=== PATIENT | female | born 1925 | race Caucasian/White ===

== ENCOUNTER 2016-10-24 14:52 | Inpatient (IN) | payer MEDICARE ==
[~2016-10-24] VITALS: Ht 167.6 cm; Wt 46.8 kg
[~2016-10-24 14:52] MED LIST: AMOX-363 PO; DIGO125T73 PO; FAMO20T PO; GABA-502 PO; IPRA3AMP NEB; WARF2.5T82 PO
[2016-10-24 15:09] VITALS: BP 187/100; PULSE 96; RESP 20; O2SAT 99
--- NOTE | 2016-10-24 15:29 | ED.REPORT ---
HPI-Abd Pain F 40 and Over Date of Service Oct 24, 2016 ED Provider: Dr. Santamaria Pt is an 89 y/o female anticoagulated on Warfarin w/ a hx of A-fib, CHF, presenting to the ED with her family c/o worsening constant, sharp diffuse lower abdominal pain onset last night. She c/o associated nausea, vomiting x1 small episode, anorexia. She denies dysuria, constipation, diarrhea, back pain, fever, bloody stools, cough, SOB. She has had an appendectomy and cholecystectomy. Nursing Notes Stated Complaint: POSSIBLE KIDNEY STONES Chief Complaint: Female Abdominal Pain Nursing Notes Reviewed: Yes Allergies: Coded Allergies: morphine (Verified Adverse Reaction, Severe, Nausea,Vomiting, 10/24/16) Scheduled Digoxin (Digoxin) 125 Mcg Tablet 125 MCG PO HS Warfarin Sodium (Warfarin Sodium) 1 Mg Tablet 1.5 MG PO ,Mo,,,Fr,Sa Warfarin Sodium (Warfarin Sodium) 1 Mg Tablet 2 MG PO every sunday General Time Seen by MD: 15:28 Chief Complaint Abdominal pain Hx Obtained From: Patient Arrived By: Walk-in Sudden in Onset?: No Onset Occurred: 9 - 12 hours ago Symptom Duration: Constant Progression since Onset: Constant Location: : Abdomen lower Quality: Painful Radiation: : Does not radiate Severity: Current: Moderate Severity: Maximum: Moderate Past Medical History Past Medical History Atrial fibrillation - on Coumadin CHF Hx kidney stones Hx pneumonia Past Surgical History Appendectomy Cholecystectomy Family History noncontributory Smoking History Unknown if Ever Smoker Social History Other Social History: Local resident Ambulatory Status Independent Review of Systems Constitutional: Denies: Chills, Fever Respiratory: Denies: Non-productive cough, Shortness of breath GI: Reports: Abdominal pain, Anorexia, Nausea, Vomiting Female: Denies: Dysuria Musculoskeletal: Denies: Back pain Complete sys rev & neg: except as marked. Physical Exam Vital Signs Vital Signs (First) Date Time Temp Pulse Resp B/P Pulse Ox O2 Delivery O2 Flow Rate FiO2 10/24/16 15:09 36.4 96 20 187/100 99 Room Air Initial VS: Reviewed, Vital signs abnormal Head / Eyes: Atraumatic, Normocephalic, PERRL ENT: Mucous membranes moist, Conjunctiva normal, No scleral icterus Neck: Supple, Full range of motion Extremities: Vascular intact, Neuro intact, No swelling Skin: Warm, Dry, No cyanosis Neurologic: Alert, Oriented, Nonfocal Psychiatric: Mood/affect normal, Behavior normal, Normal thought content General/Constitutional: Awake, Alert, No acute distress, Cooperative, Not toxic appearing Appearance / Presentation: Positive: Cachectic Respiratory / Chest: No respiratory distress, No rales, No rhonchi, No wheezing Decreased breath sounds over right base Cardiovascular: Heart rate NL, Regular rhythm, Heart sounds NL, No gallop, No murmurs, No rubs Abdomen: Atraumatic, Soft, No guarding, No rebound, No distention Tenderness/Guarding/Rebound: Positive: Tender RLQ... (Mild), Tender suprapubic (mild) Back: Full range of motion, Painless range of motion Interpretation & Diagnostics Lab Results Interpretation Result Diagram: 10/24/16 1545 10/24/16 1545 Test 10/24/16 15:45 10/24/16 18:08 White Blood Count 8.5th/mm3 (3.8-10.1) Red Blood Count 4.43mil/mm3 (3.90-5.20) Hemoglobin 10.4g/dL (12.0-15.6) Hematocrit 34.3% (35.0-46.0) Mean Corpuscular Volume 77.4fL (81-100) Mean Corpuscular Hemoglobin 23.5pg (27.0-35.0) Mean Corpuscular Hemoglobin Concent 30.3% (32.0-37.0) Red Cell Distribution Width 17.4% (12.3-15.4) Platelet Count 144bil/L (150-400) Neutrophils (%) (Auto) 88.6% (40-74) Lymphocytes (%) (Auto) 6.7% (14-46) Monocytes (%) (Auto) 4.1% (4-12) Eosinophils (%) (Auto) 0.2% (0-5) Basophils (%) (Auto) 0.2% (0-3) Prothrombin Time 24.9sec (8.1-12.5) Prothromb Time International Ratio 2.29ratio Sodium Level 140mEq/L (134-144) Potassium Level 4.2mEq/L (3.5-5.2) Chloride Level 100mEq/L (97-108) Carbon Dioxide Level 26mmol/L (18-29) Blood Urea Nitrogen 16mg/dL (8-27) Creatinine 0.78mg/dL (0.57-1.00) Estimat Glomerular Filtration Rate 100mL/min (>59) Glucose Level 122mg/dL (60-99) Lactic Acid Level 1.3mmol/L (0.4-2.0) Calcium Level 9.3mg/dL (8.5-10.1) Magnesium Level 1.9mg/dL (1.6-2.6) Total Bilirubin 0.9mg/dL (0.0-1.2) Aspartate Amino Transf (AST/SGOT) 17U/L (0-50) Alanine Aminotransferase (ALT/SGPT) 7U/L (0-32) Alkaline Phosphatase 73U/L (25-165) Total Protein 6.4g/dL (6.4-8.4) Albumin 3.7g/dL (3.4-5.0) Lipase 25U/L (13-60) Urine Color Yellow (YELLOW) Urine Appearance Clear (CLEAR,HAZY) Urine pH 7.5 (5.0-8.0) Urine Specific Valentine 1.010 (1.003-1.035) Urine Protein Negativemg/dL (NEG,TRACE) Urine Glucose (UA) Negativemg/dL (NEGATIVE) Urine Ketones 15mg/dL (NEGATIVE) Urine Occult Blood Trace (NEGATIVE) Urine Nitrite Negative (NEGATIVE) Urine Bilirubin Negative (NEGATIVE) Urine Urobilinogen Normalmg/dL (NORMAL) Urine Leukocyte Esterase Negative (NEGATIVE) Urine RBC 0-2/hpf (0-2) Urine WBC 0-5/hpf (0-5) Urine Epithelial Cells None/hpf (NONE-MOD) Urine Crystals Amorphous urates (NONE Urine Bacteria Few/hpf (NONE-FEW) Urine Hyaline Casts None/lpf (NONE) Urine Granular Casts None seen (NONE SEEN) Urine Waxy Casts None seen (NONE SEEN) Urine Red Blood Cell Casts None seen (NONE SEEN) Urine White Blood Cell Casts None seen (NONE SEEN) Urine Mucus None seen (None Seen) Urine Trichomonas None seen (NONE SEEN) Urine Yeast None (NONE SEEN) Urinalysis Comment None Urine Culture Reflexed Not indicated ECG Interpretation ECG Interpretation: A-fib rate 62 Time: 17:42 Interpreted by: ED physician Normal ECG Interpretation: No acute ischemic changes CT Abd / Pelvis Interpretation IMPRESSION: Changes consistent with small bowel obstruction. Cause and location is not identified. The appearance would suggest all is not all of the small bowel is distended. There is some air and feces in the colon but there is no distention of the colon. Prominently calcified ringlike structure probably old inflammatory cyst from the inferior pole of the left kidney unchanged. Bilateral one on each side nonobstructing renal calculi. Enlarged heart but no failure appreciated. There is a small left pleural effusion of unknown cause. Abnormal vascular clips in density in the region of the GE junction suggesting old surgery in the area. Dictated by: Dino Avendano M.D. on 10/24/2016 at 17:41 Approved by: Dino Avendano M.D. on 10/24/2016 at 17:56 Study type: Abdominal CT IV contrast Interpretation / Wet Read by: Interpret - Radiologist, Discussed w radiologist Re-Eval/Medical Decision Med Decision/Clinical Course 89-year-old female history of cholecystectomy, appendectomy, atrial fibrillation on warfarin presenting with abdominal pain nausea vomiting times several days. She is diffuse lower abdominal tenderness no rebound or guarding. CT scan shows small bowel obstruction. No vomiting here. With blood cell count is normal. Discussed with general surgery Dr. Muhammad who agrees with plan for hospitalization on the hospitalist service with NG tube and bowel rest. Patient admitted to the hospitalist service. Will hold Coumadin in case she needed surgical intervention. Full code per family. Source of Hx: Old records Re-Evaluation/Progress : Time of Eval: 18:08 Re-Evaluation/Progress Note: Pt rechecked. Pain improved. Discussed CT results. Consultation : Referral / Consult Name: Miguel Muhammad MD Consulted With: Surgeon Call Returned at: 18:15 Furniture Refinisher: Agrees with eval, Agrees with plan Note: Recommends admit. Will consult during admit. Hold Warfarin, treat as partial SBO. Counseled Regarding: Diagnosis, Lab results, Need for admission Discharge & Departure Primary Impression: SBO (small bowel obstruction) Additional Impression: Anticoagulated on warfarin Disposition: ADMITTED TO HOSPITAL Discharge Condition All VS Reviewed: Yes Condition: Stable Referrals: Claudette Wilkins PA-C (PCP) Scribe Attestation Portions of this note were transcribed by Jack La. I, Dr. Santamaria personally performed the history, physical exam and medical decision-making; I reviewed and confirmed the accuracy of the information in the transcribed note. Signed by Cici Senior, 10/24/16 - 1599 copies to: Claudette Wilkins PA-C, Ben M MD Oct 24, 2016 15:28 JACK LA Oct 24, 2016 15:52
[2016-10-24] MEDS ORDERED: 0.9% Sodium Chloride 250 ML IV ONE (15:53)
[2016-10-24 16:09] LABS: Mean Corpuscular Hemoglobin 23.5 pg (27.0-35.0); Mean Corpuscular Volume 77.4 fL (81-100); Platelet Count 144 bil/L (150-400)
[2016-10-24 16:10] LABS: BASOPHILS % (AUTO) 0.2 % (0-3); EOSINOPHILS % (AUTO) 0.2 % (0-5); MONOCYTES % (AUTO) 4.1 % (4-12); NEUTROPHILS % (AUTO) 88.6 % (40-74)
[2016-10-24 16:13] LABS: INR 2.29 ratio
[2016-10-24 16:19] LABS: Magnesium 1.9 mg/dL (1.6-2.6)
[2016-10-24] MEDS: HYDROmorphone 0.5 mg/0.5 mL iSecure Syringe IVPUSH PRN ×2 (16:22→18:15)
[2016-10-24] MEDS: Ondansetron 2 mg/mL 2 mL Inj IVPUSH PRN ×2 (16:23→21:02)
[2016-10-24 17:47] VITALS: BP 165/72; PULSE 81; RESP 16; O2SAT 95
--- NOTE | 2016-10-24 17:58 | DRSVH ---
PROCEDURE: CT ABDOMEN AND PELVIS WITH CONTRAST ([id number]) INDICATIONS: abd pain RLQ, suprapubic TECHNIQUE: After the administration of intravenous contrast, 5 mm thick sections acquired from the diaphragm to the symphysis. 5 mm coronal and sagittal reformats were acquired. For radiation dose reduction, the following was used: automated exposure control, adjustment of mA and/or kV according to patient siz kimberley. COMPARISON: [facility], CT, CT ANGIO CHEST ABD, 10/23/2015, 16:01. FINDINGS: Image quality: Good. ABDOMEN: Lung bases: Lung bases show a small left pleural effusion.. Heart size is enlarged Solid organs: Liver and spleen are normal in size and enhancement. Gallbladder has been removed. Bi liary tree is prominent but are probably not changed intra-or extrahepatically since the previous alan dy.. . Pancreas enhances normally. No adrenal nodules. Kidneys demonstrate normal size and enhanc ement, without hydronephrosis. Densely calcified cyst circular structure at the inferior pole of the left kidney of approximately 3-4 cm size is unchanged since the study one year ago. 2 renal calculi o ne on the right and one on the left postcentral but nonobstructing are present. The one on the right is 8 and the one on the left 9 mm. Calcifications were seen previously as well as the dense cystic ca lcified lesion inferiorly on the left. Peritoneum and bowel: There are vascular clips and abnormal density in the region of the GE junction but these are unchanged since previous CT. Bowel loops demonstrate distention throughout the small b owel. Transition point is not appreciated. Colon is not thought to be distended there is scattered di verticula. No free air or fluid is identified.. No free fluid or air. Nodes and vessels: No retroperitoneal or mesenteric adenopathy by size criteria. The aorta shows a p rominent atherosclerotic calcification and some ectasia. No dissection or aneurysm. The major vessels from the aorta showed a contrast-enhancement. The inferior vena cava is normal in size. Miscellaneous: No ventral hernias. PELVIS: Genitourinary: Bladder wall thickness is normal. Miscellaneous: No inguinal hernias or adenopathy. Bones: No suspicious bony lesions. No vertebral body compression fractures. IMPRESSION: Changes consistent with small bowel obstruction. Cause and location is not identified. The appearanc e would suggest all is not all of the small bowel is distended. There is some air and feces in the co radha but there is no distention of the colon. Prominently calcified ringlike structure probably old inflammatory cyst from the inferior pole of the left kidney unchanged. Bilateral one on each side nonobstructing renal calculi. Enlarged heart but no failure appreciated. There is a small left pleural effusion of unknown cause. Abnormal vascular clips in density in the region of the GE junction suggesting old surgery in the are a. Dictated by: Dino Avendano M.D. on 10/24/2016 at 17:41 Approved by: Dino Avendano M.D. on 10/24/2016 at 17:56
[2016-10-24 18:17] LABS: APPEARANCE,URINE CLEAR (CLEAR,HAZY); COLOR,URINE YELLOW (YELLOW); OCCULT BLOOD,URINE TRACE (NEGATIVE); PH,URINE 7.5 (5.0-8.0); UROBILINOGEN,URINE NORMAL (NORMAL)
[2016-10-24] MEDS ORDERED: Benzocaine (Hurricaine) 20% Unit-Dose Spray MUC_MEMBRM ONE (18:35)
[2016-10-24] MEDS ORDERED: WARF1TAB6 PO ×2 (19:21)
[2016-10-24] MEDS ORDERED: Alum-Mag Hydrox-Simeth 30 mL Suspension PO PRN ×2 (19:25→20:45)
[2016-10-24] MEDS ORDERED: Ondansetron 2 mg/mL 2 mL Inj IVPUSH PRN ×2 (19:25→20:45)
[2016-10-24 20:09] VITALS: BP 179/81; PULSE 75; RESP 18; O2SAT 97
[2016-10-24] MEDS ORDERED: Polyethylene Glycol (PEG) 17 Gm Powder PO PRN (20:45)
[2016-10-24 20:50] VITALS: BP 179/81; PULSE 75; RESP 17; O2SAT 97
[2016-10-24 21:49] VITALS: BP 173/97; PULSE 74; RESP 18; O2SAT 94
--- NOTE | 2016-10-24 22:45 | PCM.HPMED ---
Subjective Date of Service Oct 24, 2016 Primary Provider: Admitting Physician: Jayce Lehman MD Primary Care Physician: Claudette Wilkins PA-C Attending Physician: Jayce Lehman MD Chief Complaint: Abdominal pain History of Present Illness: 89-year-old female with history of mild dementia, atrial fibrillation on warfarin, CHF, kidney stones, and admission 2016 for pneumonia who presented to the emergency department due to complaints of worsening sharp lower abdominal pain with associated anorexia and nausea/ vomiting 1. Per [id number] who is with the patient, the patient began having some abdominal pain this morning around 8 AM this morning that progressively got worse until she had one small emesis. Family tried Pepto-Bismol and herbal tea which did not help calm the patient's belly. Patient denies any fevers, chills, chest pain or shortness of breath. Patient does state that she has loose watery stools chronically, and she has been able to pass flatus throughout the day. Per the [id number]-ru-[id number] the patient has been steadily declining over this last 6 months with a steeper decline noticed over the last 3 months. She is increasingly weak and only able to eat small amounts of food. Patient lives with family in they have been concerned about her eating habits have tried to get her to eat more but the patient has been uninterested. All other review systems are negative. Patient' s surgical history includes an appendectomy and cholecystectomy, in 2004 and 2002 respectively. Patient is currently ambulating with a walker. Dash (son) his DPOA. In the emergency department CT scan of the abdomen revealed changes consistent with a small bowel obstruction, although location was difficult to identify. Laboratory values show a microcytic hypochromic anemia and normal leukocyte count but with a left shift. CMP was unremarkable including lipase. INR was 2.29. Dr. Miguel Muhammad was consultative from the ED and recommended admit, holding the warfarin, and placing an NG tube. Review of Systems: Complete review of systems performed; pertinent positives and negatives per history of present illness, all other systems reviewed and are negative Allergies Coded Allergies: morphine (Verified Adverse Reaction, Severe, Nausea,Vomiting, 10/24/16) Home Medications Digoxin (Digoxin) 125 Mcg Tablet 125 MCG PO HS Famotidine (Pepcid) 20 Mg Tablet 10 MG PO BID Gabapentin (Gabapentin) 300 Mg Capsule 300 MG PO BID Warfarin Sodium (Warfarin Sodium) 2.5 Mg Tablet 2.5 MG PO ASDIRECTED Ipratropium/Albuterol Sulfate (Iprat-Albut 0.5-3(2.5) mg/3 mL Inhalant Soln) 3 Ml Ampul.neb 3 ML NEB Q4H PRN PRN For Shortness of Breath PMH Atrial fibrillation - on Coumadin CHF Hx kidney stones Hx pneumonia Surgical History Appendectomy Cholecystectomy Family History Both her parents are although unable to relate her past medical history Social History Hx Alcohol Use: No Hx Substance Use: No Hx Tobacco Use: No Smoking Status: Unknown if Ever Smoker Living Arrangement: with Family Exam Vital Signs Vital Sign - Last Date Time Temp Pulse Resp B/P Pulse Ox O2 Delivery O2 Flow Rate FiO2 10/24/16 21:49 36.7 74 18 173/97 94 Room Air Exam General: Patient appears severely malnourished and cachectic; in many areas the patient appears to have no soft tissue and thinning of skin, around the base of her neck the clavicles are quite protruded, sternocleidomastoids are extremely defined, and rib cage is clearly visible; patient's arms are essentially bone HEENT: PERRLA, EOMI, nonicteric, membranes moist; JVD noted sitting upright Lymph: No lymphadenopathy Cardio: Regular rate and rhythm no murmurs rubs or gallops Respiratory: CTA bilaterally, no wheezes, no crackles Abdomen: Tenderness to palpation, soft, bowel tones difficult to appreciate Extremities: Mild to moderate edema of the lower extremities bilaterally Psych: Appropriate mood and affect Neuro: CN II through XII grossly intact, sensation intact throughout Skin: No rash Lab and Diagnostics Result Diagram: 10/24/16 1545 10/24/16 1545 X-Rays, CTs and MRIs CT abdomen IMPRESSION: Changes consistent with small bowel obstruction. Cause and location is not identified. The appearance would suggest all is not all of the small bowel is distended. There is some air and feces in the colon but there is no distention of the colon. Prominently calcified ringlike structure probably old inflammatory cyst from the inferior pole of the left kidney unchanged. Bilateral one on each side nonobstructing renal calculi. Enlarged heart but no failure appreciated. There is a small left pleural effusion of unknown cause. Abnormal vascular clips in density in the region of the GE junction suggesting old surgery in the area. Dictated by: Dino Avendano M.D. on 10/24/2016 at 17:41 Assessment & Plan 89-year-old female who appears severely malnourished with a history of atrial fibrillation on warfarin and CHF, with 2 abdominal surgeries in the last 15 years presents due to abdominal pain with CT consistent with small bowel obstruction Small Bowel Obstructions; present admission; ongoing -Symptoms support diagnosis of SBO with acute onset of nausea and vomiting, abdominal pain; however patient continues to pass flatus -Patient is severely malnourished/cachectic; this will definitely complicate her course -Dr. Muhammad (surgery) to see patient in a.m. -NG tube placed in ED -Patient made nothing by mouth -Hold warfarin -Pain currently controlled with acetaminophen -Zofran and phenergan for nausea -CXR to identify -Lozanges Cachexia and anorexia; present admission; ongoing -Patient has no appetite and has not been eating well for 6 months -Family no steady decline over the last 6 months with increased sputum the last 3 -Recommend consultation palliative care Atrial fibrillation; present on admission; ongoing -Controlled with digoxin -Therapeutic on warfarin -Hold warfarin per surgical request -No attempt to reverse INR this evening Microcytic hypochromic anemia with thrombocytopenia; present admission; ongoing -Likely second to malnutrition and iron deficiency anemia -Iron studies -We will not supplement at this time due to SBO Disposition: Patient is being admitted to inpatient status with expected length of stay greater than two midnights due to to severity of presentation, duration of treatment, and risks of adverse events disposition Full code; discussed extensively with family who feel that they need to do everything to prolong life. Pain Evaluation: Adequate Pain Control VTE Prophylaxis Indicated: VTE on Admission Resuscitation Status: CPR: Attempt Resuscitation Attending Statement The patient was seen and examined together with Dr. Jeffries on 10/24 and I agree with the history, exam and plan as outlined in the note above. Steve Jeffries DO Oct 24, 2016 22:45 Jayce Lehman MD Oct 25, 2016 00:03
[2016-10-24] MEDS ORDERED: Promethazine 25 mg/mL Inj IM ONE (22:55)
[2016-10-25 00:20] VITALS: BP 164/88; PULSE 70; RESP 16; O2SAT 95
--- NOTE | 2016-10-25 01:12 | NUR ---
Arrival to Room 1024 Patient arrived to room 1024 at 2112 via [facility] accompanied by ED staff and son and daughter in law. Patient was able to transfer over to bed with 2 person assist.Patient oriented to room with some understanding. NG tube attached to continuous suction without any drainage noted after thirty [address]. Dr. Jeffries notified and chest xray ordered to verify placement. Results pending. Patient stated some nausea. Phenergan 12.5mg IVP administered. VSS. Call light within reach. Care continues.
[2016-10-25 04:40] VITALS: BP 144/80; PULSE 61; RESP 15; O2SAT 97
[2016-10-25 06:56] LABS: INR 2.69 ratio
[2016-10-25 06:57] LABS: BASOPHILS % (AUTO) 0.2 % (0-3); EOSINOPHILS % (AUTO) 0.2 % (0-5); MONOCYTES % (AUTO) 9.3 % (4-12); Mean Corpuscular Hemoglobin 23.3 pg (27.0-35.0); Mean Corpuscular Volume 78.2 fL (81-100); NEUTROPHILS % (AUTO) 77.1 % (40-74); Platelet Count 138 bil/L (150-400)
--- NOTE | 2016-10-25 08:21 | DRSVH ---
PROCEDURE: X-RAY CHEST ONE VIEW, PORTABLE ([id number]) INDICATIONS: ng tube placement TECHNIQUE: One view of the chest was acquired. COMPARISON: [facility], CT, CT ABD PELVIS W CON, 10/24/2016, 17:26. [facility], CR, XR CHEST 2VW, 11/29/2015, 11:36. FINDINGS: Surgical changes and devices: NG tube is in place tip traversing the GE junction. Left upper quadran t surgical clips are redemonstrated. Lungs and pleura: No pleural effusions or pneumothorax. Lung volumes are increased with flattening of the hemidiaphragms suggesting COPD. there is mild blunting the costophrenic angle similar to prior examination. Mediastinum: Mediastinal contours appear normal. Heart size is enlarged. Bones and chest wall: No suspicious bony lesions. Overlying soft tissues appear unremarkable. IMPRESSION: 1. Placement of nasogastric tube. 2. Lung volumes are increased suggesting COPD, correlate with pulmonary functions test. 3. Blunted costophrenic angles similar to prior examination consistent with pleural scarring versus recurrent or persistent pleural effusions. Dictated by: Dinh Baker [facility] Interpreted: Jim Gilbert MD on 10/25/2016 at 8:17 Transcribed by: ANA on 10/25/2016 at 8:19 Approved by: Jim Gilbert M.D. on 10/25/2016 at 9:16
[2016-10-25] MEDS: Dextrose 5% 0.45% NaCl 1,000 ML IV SCH (11:09)
--- NOTE | 2016-10-25 11:21 | CONS ---
[address] [address] CONSULTATION REPORT PATIENT: LUIS LUNA : 1925 MR#: [id number] ADMIT: 10/24/2016 JOB ID: [id number] DATE OF SERVICE: 10/25/2016 HISTORY OF PRESENT ILLNESS: I was asked to see Luis in consultation. She was admitted through the emergency department last night. She was seen with lower abdominal pain and nausea and vomiting. Symptoms started yesterday morning and when they were worsened then they came to the emergency department. She has a past history of a hiatal hernia repair, cholecystectomy, and appendectomy and hysterectomy all done in [place]. In the emergency department a CT scan was obtained which is consistent with a small-bowel obstruction without evidence of pneumatosis or free intra-abdominal air. There is gas and stool in the colon. There is no evidence of malignancy on her CT scan. This morning she states she is in no pain and she has not passed gas or had a bowel movement. PAST MEDICAL HISTORY: Illnesses: 1. Atrial fibrillation. 2. Anticoagulation status on warfarin. 3. Congestive heart failure. 4. Kidney stones. 5. Past history of pneumonia. Operations by her description: 1. Hiatal hernia repair. 2. Appendectomy. 3. Cholecystectomy. 4. Hysterectomy in [place]. SOCIAL HISTORY: She lives with her son and [id number]. She has spent most of her life in [place]. Denies tobacco and alcohol. PHYSICAL EXAMINATION: Elderly diminutive no distress. BMI is 16.7, temperature 36.6, brachial blood pressure 144/80, pulse 61, respiratory rate 15, O2 sat 97%. HEENT: She has an NG tube in place with bilious output. Neck trachea midline. No appreciable masses. Lungs decreased breath sounds. Cardiac exam I did not appreciate any murmurs or gallops. Abdomen upper midline incision. Abdomen is flat, soft, nontender. Extremities diffuse muscle atrophy consistent with age. Neurologic exam responsive to questions, appropriate affect. No obvious cranial nerve deficits. Moves all extremities. Gait not tested. Skin, no anterior abdominal wall rashes. LABORATORY RESULTS: From this morning white blood cell count 5.5, hematocrit is 35.2, platelet count 138,000. Electrolytes are normal. Creatinine 0.73. Glucose 99. Liver function tests normal. Albumin 4.0. INR 2.69. She was 2.29 yesterday. IMPRESSION: Small bowel obstruction almost certainly secondary to adhesions. This is her first small-bowel obstruction, 75% of small bowel obstructions will resolve without operative management. I will order a Gastrografin challenge today. She needs to get IVs ordered. IV should be ordered upon admission on anyone with a bowel obstruction. She also should not be getting warfarin. RECOMMENDATIONS: 1. IV hydration. 2. Hold warfarin. 3. Gastrografin challenge orders are put in.
[2016-10-25 12:26] VITALS: BP 170/98; PULSE 94; RESP 16; O2SAT 98
--- NOTE | 2016-10-25 14:24 | NUR ---
NUTRITION ASSESSMENT: ASSESS: 89 YO female admitted for SBO. Pt s/p Gastrografin challenge today. Per notes, pt has been declining over the past 3-6 months and has not been eating much for the past 6 months, wt has been relatively stable x 1 year with 6.6% wt loss x year, but unknown timeframe for when wt loss started during the past year. PMHX: AAA, A-fib Mild dementia, CHF, Kidney stone, PNA, hiatal hernia repair, appendectomy, cholecystectomy. LABS: Reviewed. Alb 4.0 MEDS: Reviewed. GI: Diarrhea BM today s/p Gastrografin challenge. NG tube placed in ED with no output reported at this time. CURRENT WTS: 46.8 kg. Wt 1 year ago: 50.1 kg. Wt loss of 6.6% x 1 year. DIET: NPO x 1 day. EST. NEEDS: Wt Gain kcals: 9140-5175 kcal/day (30-35 kcal/kg BW) pro: 70-90 g/day (1.2-1.5 g/kg IBW) NUTRITION DIAGNOSIS: 1.) Inadequate oral intake related to altered GI function as evidenced by current NPO status. 2.) Increased nutrient need related to increased demand for nutrients as evidenced by BMI of 16.7 and 6.6% wt loss x 1 year. NUTRITION INTERVENTION: 1.) Recommend diet advancement when appropriate, hopefully within the next 1-2 days. 2.) Consider adding supplement on all trays once diet advanced to encourage increased/adequate po intake. MONITOR / EVAL: Diet advancement /tolerance, labs, nutritional status. Follow per high nutritional risk guidelines.
--- NOTE | 2016-10-25 14:27 | NUR ---
diarrhea pt had approx 500cc brown liquid stool. feels better about 3 hours after receiving Gastrographin, denies nausea or abd discomfort at this time
--- NOTE | 2016-10-25 15:32 | PCM.CONPHA ---
Subjective Abdominal pain Reason for Pharmacy Consult: Anticoagulation Management Assessment/Plan Assessment/Plan Warfarin Management by Pharmacy Indication: Afib Home Dose: 2 mg Wednesdays; 1.5 mg AOD INR Goal: 2-3 Duration: Chronic INR: 2.69 Assessment/Plan -Therapeutic INR with therapy currently being held per surgery. -Will continue to hold therapy this evening. Pharmacy to dose when therapy is restarted. -Pharmacy to monitor INR/CBC/signs of bleeding while inpatient. Rubin Wesley Dwaine Pharm.D. Maverick Conklin Oct 25, 2016 15:32
--- NOTE | 2016-10-25 15:42 | NUR ---
Social Work- Initial Assessment/ Multidisciplinary Rounds Data: See Initial Assessment and Advance Directive Intervention for additional information. Pt discussed in rounds. Pt is not ready for discharge at this time. Pt has NG tube. Surgery is following. No social work orders placed at this time. Pt is a 89 year old admitted 10/24/16 for SBO per H&P. Pt's insurance is [employer] [facility]. Pt's PCP is Claudette Wilkins PA-C. Pt's readmit risk score is not listed at this time. SW met with pt at bedside regarding discharge plan, SW role explained. Pt alert and oriented x3, though sleepy. Pt's son Abebe is the designated discharge planning contact. Pt's capacity for self-care assessed. Pt resides in [place] with her son and her son's family. Pt uses a cane in the home and a walker outside. Pt does not drive. Pt has history with HH services, company unknown. Pt has history with SNF services, facility unknown. Pt has no DPOA on file and SW requested that pt bring in copy of DPOA. Pt reports that her son Abebe Raphael DPOA. SW provided Discharge planning Checklist and requested that pt contact [facility] if needs identified. SW provided phone number and plan on whiteboard. Pt agreeable. SW will continue to follow. T/C to pt's DPOA Abebe Raphael regarding discharge plan and to complete assessment as pt was too sleepy. SW left message for pt's son, awaiting return call. Assessment: Pt who resides with her family Plan: SW awaiting return call from pt's DPOA to complete assessment. SW will continue to follow for pt's discharge planning needs. DIONNE Odom Addendum: 10/25/16 at 1548 by ASHLEIGH AGUAYO Amended: Links added.
--- NOTE | 2016-10-25 17:35 | PCM.PNMED ---
Subjective Date of Service Oct 25, 2016 Subjective Denies any new issues/complaints Exam Vital Signs Vital Sign - Last Date Time Temp Pulse Resp B/P Pulse Ox O2 Delivery O2 Flow Rate FiO2 10/25/16 12:26 36.6 94 16 170/98 98 Room Air Intake and Output 10/24/16 10/24/16 10/25/16 Cumulative From/Thru 15:00 23:00 07:00 10/24/16 15:09 - 10/25/16 04:44 Intake Total 250 ml 0 ml 250 ml Output Total 90 ml 250 ml 340 ml Balance 160 ml -250 ml -90 ml Intake Oral 0 ml 0 ml IV Total 250 ml 250 ml Output Urine Total 250 ml 250 ml Other 90 ml 90 ml # Voids 1 1 # Bowel Movements 0 0 General: Alert, Cooperative, No Acute Distress Head: Normal Eyes: Scleral Anicteric Nose: Mucous Membr Moist/Ludden, Other (NG tube in place) Mouth: Mucous Membr Moist/Ludden Neck: Supple Chest & Lungs: Chest Wall Normal, Clear to auscultation & percussion Cardiovascular: Regular Rate/Rhythm Abdomen: Non-tender, Non-distended, Normoactive bowel tones, Soft Extremities: No cyanosis/clubbing/edma bilat Neurological: Grossly Neurologically Intact, Normal Speech IVs and Medications Medications Reviewed: Medications were reviewed in detail Lab and Diagnostics Result Diagram: 10/25/1660410/25/16604 X-Rays, CTs and MRIs CT abdomen IMPRESSION: Changes consistent with small bowel obstruction. Cause and location is not identified. The appearance would suggest all is not all of the small bowel is distended. There is some air and feces in the colon but there is no distention of the colon. Prominently calcified ringlike structure probably old inflammatory cyst from the inferior pole of the left kidney unchanged. Bilateral one on each side nonobstructing renal calculi. Enlarged heart but no failure appreciated. There is a small left pleural effusion of unknown cause. Abnormal vascular clips in density in the region of the GE junction suggesting old surgery in the area. Dictated by: Dino Avendano M.D. on 10/24/2016 at 17:41 Assessment & Plan 89-year-old female who appears severely malnourished with a history of atrial fibrillation on warfarin and CHF, with 2 abdominal surgeries in the last 15 years presents due to abdominal pain with CT consistent with small bowel obstruction # Acute Small Bowel Obstructions; present admission; ongoing - Appreciate surgery consult. Will followup with recs - Continue with NG tube placed in ED - Gastrografin challenge per surgery - Hold warfarin - Continue with supportive care including pain control and antinausea medications # Cachexia and anorexia; present admission; ongoing - Patient has no appetite and has not been eating well for 6 months - Nutrition consult when able to tolerate PO # Chronic atrial fibrillation; present on admission; ongoing - Controlled with digoxin - Therapeutic on warfarin - Hold warfarin per surgical request (Pharmacy to manage) - No attempt to reverse INR this evening # Microcytic hypochromic anemia with thrombocytopenia; present admission; ongoing - Likely second to malnutrition and iron deficiency anemia - Iron studies Disposition: 1-2 days Resuscitation Status: CPR: Attempt Resuscitation Myles Blanc Oct 25, 2016 17:35 Full code; discussed extensively with family who feel that they need to do everything to prolong life. Resuscitation Status: CPR: Attempt Resuscitation Myles Blanc Oct 25, 2016 17:35
[2016-10-25 20:27] VITALS: BP 120/74; PULSE 60; RESP 15; O2SAT 97
[2016-10-26] MEDS: Dextrose 5% 0.45% NaCl 1,000 ML IV SCH (02:53)
[2016-10-26 04:20] VITALS: BP 143/74; PULSE 66; RESP 16; O2SAT 96
[2016-10-26 06:16] LABS: BASOPHILS % (AUTO) 0.7 % (0-3); EOSINOPHILS % (AUTO) 2.1 % (0-5); MONOCYTES % (AUTO) 13.4 % (4-12); Mean Corpuscular Hemoglobin 23.5 pg (27.0-35.0); Mean Corpuscular Volume 79.2 fL (81-100); NEUTROPHILS % (AUTO) 59.8 % (40-74); Platelet Count 117 bil/L (150-400)
[2016-10-26 06:43] LABS: Unsaturated Iron Binding 268.3 ug/dL
--- NOTE | 2016-10-26 06:44 | NUR ---
Activity Pt has had no c/o pain/N/V this shift and has not had a BM since yesterday 10/25/16. Pt slept most of shift, A/OX3, mild dementia, easy to arouse, but very lethargic.
[2016-10-26 06:49] LABS: INR 3.77 ratio
[2016-10-26 08:08] VITALS: BP 140/79; PULSE 75; RESP 16; O2SAT 99
--- NOTE | 2016-10-26 10:36 | DRSVH ---
PROCEDURE: X-RAY GASTROGRAFIN CHALLENGE, 1 VIEW ABDOMEN INDICATIONS: SMALL BOWEL OBSTRUCTION TECHNIQUE: One view of the abdomen acquired. COMPARISON: , CR, XR CHEST 1VW (PORTABLE), 10/24/2016, 23:09. [facility] spital, CT, CT ABD PELVIS W CON, 10/24/2016, 17:26. FINDINGS: Surgical changes and devices: None. Bowel: Residual contrast media noted throughout the course of the colon otherwise the bowel gas patte rn appears grossly normal. Soft tissues: No suspicious abdominal calcifications. Visualized solid organ contours appear normal in size. Vascular calcifications indicate atherosclerosis. Bones: No suspicious bony lesions. IMPRESSION: Residual contrast media noted throughout the course of the colon otherwise normal bowel g as pattern. Dictated by: Dinh Baker RRA Interpreted: Felicita Parker MD on 10/26/2016 at 9:09 Approved by: Felicita Parker MD, PhD on 10/26/2016 at 10:33
--- NOTE | 2016-10-26 11:40 | PCM.DIMED ---
Discharge Instructions Date of Service Oct 26, 2016 Dates of Hospitalization Oct 24, 2016 at 20:28 Discharge Diagnosis Discharge Diagnosis # Acute Small Bowel Obstructions; present admission. Resolved. # Cachexia and anorexia; present admission; ongoing # Chronic atrial fibrillation; present on admission. Stable. # Chronic anticoagulation with Warfarin. - INR 3.77 by day of discharge # Microcytic hypochromic anemia with thrombocytopenia; present admission; ongoing - Recommend close followup with primary care provider for further workup Medication Instructions Additional med instructions Resume your Warfarin (Coumadin) on 10/27/16 and recheck INR with your primary care provider or [facility]/Coumadin Clinic in 2-4 days Diet Discharge Diet: Heart Healthy Activity Discharge Activity: No restrictions Call your provider Call your provider for: Fever or Chills, Shortness of breath, Bleeding, Chest pain, Vomitting Patient Instructions Patient Instructions Seek immediate medical attention if any new or worsening signs or symptoms occur. Follow-up plan 1. Followup with primary care provider in 4-7 days Follow-up Provider: Claudette iWlkins PA-C, [place] Oct 26, 2016 11:40
--- NOTE | 2016-10-26 11:56 | PCM.PNSURG ---
Subjective Date of Service: Oct 26, 2016 Visit Information: Reason for Visit SBO Surgery/Surgery Date Post-Op Day # Date of Admission: Oct 24, 2016 at 20:28 Hospital Day # Subjective: No acute overnight events GG study revealed contrast in the colon Patient has since passed stool, flatus, advance diet and now reports she is feeling normal No abdominal pain, nausea or vomiting Wishes to go home Objective Vital Sign- Last 8 Hours Date Time Temp Pulse Resp B/P Pulse Ox O2 Delivery O2 Flow Rate FiO2 10/26/16 08:08 36.4 75 16 140/79 99 Room Air 10/26/16 04:20 36.6 66 16 143/74 96 Room Air Intake and Output- Last 8 Hour 10/26/16 Cumulative From/Thru 07:00 10/24/16 15:09 - 10/26/16 05:07 Intake Total 1156 ml 1826 ml Output Total 275 ml 2165 ml Balance 881 ml -339 ml Intake Oral 200 ml 620 ml IV Total 956 ml 1206 ml Output Urine Total 275 ml 975 ml Stool Total 1100 ml Other 90 ml # Voids 1 # Bowel Movements 0 0 General: Alert, Cooperative, No Acute Distress Neck: Supple Lungs: Normal Air Movement Abdomen: Benign, Soft, Non-tender, Non-distended Extremities: Warm Neuro: Grossly Neurologically Intact Result Diagram: 10/26/16 0542 10/26/16 0542 Assessment & Plan Impression 89F with resolved partial SBO. Tolerating a diet. Appears clinically well. Problems: Plan - Ok to advance diet as tolerated - Given radiographic findings and clinical improvement, patient is highly unlikely to require an operation - Likely can discharge home soon pending she is tolerating food - Please call with questions or concerns. Resuscitation Status: CPR: Attempt Resuscitation Tarun Yan MD Oct 26, 2016 11:56
[2016-10-26 12:45] VITALS: BP 165/90; PULSE 65; RESP 16; O2SAT 97
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
--- NOTE | 2016-10-26 13:03 | PROG NOTE ---
[address] [address] PROGRESS NOTE PATIENT: LUIS LUNA : 1925 MR#: [id number] ADMIT: 10/24/2016 JOB ID: [id number] DATE: 10/26/2016 SUBJECTIVE: The patient is seen in followup. I also discussed her care with Dr. Benjie Yan. I also discussed with Dr. Myles Blanc. She had bowel movements after she was given gastrografin yesterday. She is tolerating liquids and her diet is being advanced. She denies any abdominal pain, nausea, or vomiting. IMPRESSION: Doing well. RECOMMENDATIONS: Agree with plans by Dr. Yan and Dr. Blanc for discharge. She does not need to schedule any followup in the surgical clinic.
--- NOTE | 2016-10-26 13:26 | NUR ---
Social Work- Discharge Data: EMR reviewed. Pt to discharge today. Pt to discharge home with family to transport via POV. No discharge needs identified. Assessment: Pt who resides with family and receives assistance at baseline. Plan: Pt to discharge home with family to transport via POV. No discharge needs identified. DIONNE Odom
--- NOTE | 2016-10-26 15:20 | NUR ---
spiritual care:routine conversational visit with pt and son. Pt reflected on personal history and role of her yazdanism gabriela pavel in times of change and loss. Pt offered several scripture passages she finds comforting and orienting and reflected on her experiences of loss relating to move to this area. Pt feeling hopeful about medical progress and is awaiting dr report. she said she is feeling better Prayer/blessing
--- NOTE | 2016-10-26 17:43 | PCM.DC.MED ---
Discharge Summary Date of Service Oct 26, 2016 Dates of Hospitalization Date of Hospital Admission Oct 24, 2016 at 20:28 Date of Discharge: Oct 26, 2016 Providers: Admitting Physician: Jayce Lehman MD Primary Care Physician: Claudette Wilkins PA-C Attending Physician: Myles Blanc Diagnosis at Time of Discharge Diagnosis at Time of Discharge # Acute Small Bowel Obstructions; present admission. Resolved. # Cachexia and anorexia; present admission; ongoing # Chronic atrial fibrillation; present on admission. Stable. # Chronic anticoagulation with Warfarin. - INR 3.77 by day of discharge # Microcytic hypochromic anemia with thrombocytopenia; present admission; ongoing - Recommend close followup with primary care provider for further workup Consultations 1. Surgery Procedures XRay, CTs & MRIs CT abdomen IMPRESSION: Changes consistent with small bowel obstruction. Cause and location is not identified. The appearance would suggest all is not all of the small bowel is distended. There is some air and feces in the colon but there is no distention of the colon. Prominently calcified ringlike structure probably old inflammatory cyst from the inferior pole of the left kidney unchanged. Bilateral one on each side nonobstructing renal calculi. Enlarged heart but no failure appreciated. There is a small left pleural effusion of unknown cause. Abnormal vascular clips in density in the region of the GE junction suggesting old surgery in the area. Dictated by: Dino Avendano M.D. on 10/24/2016 at 17:41 Date of Service: 10/25/16 2200 PROCEDURE: X-RAY GASTROGRAFIN CHALLENGE, 1 VIEW ABDOMEN IMPRESSION: Residual contrast media noted throughout the course of the colon otherwise normal bowel gas pattern. Dictated by: Dinh Baker [facility] Interpreted: Felicita Parker MD on 10/26/2016 at 9:09 Approved by: Felicita Parker MD, PhD on 10/26/2016 at 10:33 Brief History As noted in H&P by Dr. Jeffries: 89-year-old female with history of mild dementia, atrial fibrillation on warfarin, CHF, kidney stones, and admission 2016 for pneumonia who presented to the emergency department due to complaints of worsening sharp lower abdominal pain with associated anorexia and nausea/ vomiting 1. Per [id number] who is with the patient, the patient began having some abdominal pain this morning around 8 AM this morning that progressively got worse until she had one small emesis. Family tried Pepto-Bismol and herbal tea which did not help calm the patient's belly. Patient denies any fevers, chills, chest pain or shortness of breath. Patient does state that she has loose watery stools chronically, and she has been able to pass flatus throughout the day. Per the [id number] the patient has been steadily declining over this last 6 months with a steeper decline noticed over the last 3 months. She is increasingly weak and only able to eat small amounts of food. Patient lives with family in they have been concerned about her eating habits have tried to get her to eat more but the patient has been uninterested. All other review systems are negative. Patient' s surgical history includes an appendectomy and cholecystectomy, in 2004 and 2002 respectively. Patient is currently ambulating with a walker. Dash (son) his DPOA. In the emergency department CT scan of the abdomen revealed changes consistent with a small bowel obstruction, although location was difficult to identify. Laboratory values show a microcytic hypochromic anemia and normal leukocyte count but with a left shift. CMP was unremarkable including lipase. INR was 2.29. Dr. Miguel Muhammad was consultative from the ED and recommended admit, holding the warfarin, and placing an NG tube. Hospital Course # Acute Small Bowel Obstructions; present admission; clinically resolved. - Appreciate surgery consult. - NG tube placed in ED and removed day before discharge - Gastrografin challenge on 10/25 with patient having bowel movement soon after - Tolerating advancing diet by day of discharge without any abdominal pain, nausea, vomiting. # Cachexia and anorexia; present admission; ongoing - Recommend further followup with PCP as outpatient # Chronic atrial fibrillation; present on admission. Stable. - Controlled with digoxin - Therapeutic on warfarin - No attempt to reverse INR # Microcytic hypochromic anemia with thrombocytopenia; present admission; ongoing - Likely second to malnutrition and iron deficiency anemia - Further followup and management by PCP as outpatient Exam Vital Signs (Last) Date Time Temp Pulse Resp B/P Pulse Ox O2 Delivery O2 Flow Rate FiO2 10/26/16 12:45 36.5 65 16 165/90 97 Room Air Exam General: Alert, Cooperative, No Acute Distress Head: Normal Eyes: Scleral Anicteric Nose: Mucous Membr Moist/Vian Mouth: Mucous Membr Moist/Vian Neck: Supple Chest & Lungs: Chest Wall Normal, Clear to auscultation bilat Cardiovascular: Regular Rate/Rhythm Abdomen: Non-tender, Non-distended, Normoactive bowel tones, Soft Extremities: No cyanosis/clubbing/edma bilat Neurological: Grossly Neurologically Intact, Normal Speech Test 10/24/16 15:45 10/24/16 18:08 10/25/16 06:05 10/26/16 05:42 Lactic Acid Level 1.3mmol/L (0.4-2.0) Magnesium Level 1.9mg/dL (1.6-2.6) Lipase 25U/L (13-60) Urine Color Yellow (YELLOW) Urine Appearance Clear (CLEAR,HAZY) Urine pH 7.5 (5.0-8.0) Urine Specific Sibley 1.010 (1.003-1.035) Urine Protein Negativemg/dL (NEG,TRACE) Urine Glucose (UA) Negativemg/dL (NEGATIVE) Urine Ketones 15mg/dL (NEGATIVE) Urine Occult Blood Trace (NEGATIVE) Urine Nitrite Negative (NEGATIVE) Urine Bilirubin Negative (NEGATIVE) Urine Urobilinogen Normalmg/dL (NORMAL) Urine Leukocyte Esterase Negative (NEGATIVE) Urine RBC 0-2/hpf (0-2) Urine WBC 0-5/hpf (0-5) Urine Epithelial Cells None/hpf (NONE-MOD) Urine Crystals Amorphous urates (NONE Urine Bacteria Few/hpf (NONE-FEW) Urine Hyaline Casts None/lpf (NONE) Urine Granular Casts None seen (NONE SEEN) Urine Waxy Casts None seen (NONE SEEN) Urine Red Blood Cell Casts None seen (NONE SEEN) Urine White Blood Cell Casts None seen (NONE SEEN) Urine Mucus None seen (None Seen) Urine Trichomonas None seen (NONE SEEN) Urine Yeast None (NONE SEEN) Urinalysis Comment None Urine Culture Reflexed Not indicated Total Bilirubin 0.9mg/dL (0.0-1.2) Aspartate Amino Transf (AST/SGOT) 28U/L (0-50) Alanine Aminotransferase (ALT/SGPT) 12U/L (0-32) Alkaline Phosphatase 77U/L (25-165) Total Protein 6.1g/dL (6.4-8.4) Albumin 4.0g/dL (3.4-5.0) Procalcitonin 0.07ng/mL (0.00-0.08) White Blood Count 4.3th/mm3 (3.8-10.1) Red Blood Count 3.95mil/mm3 (3.90-5.20) Hemoglobin 9.3g/dL (12.0-15.6) Hematocrit 31.3% (35.0-46.0) Mean Corpuscular Volume 79.2fL (81-100) Mean Corpuscular Hemoglobin 23.5pg (27.0-35.0) Mean Corpuscular Hemoglobin Concent 29.7% (32.0-37.0) Red Cell Distribution Width 17.7% (12.3-15.4) Platelet Count 117bil/L (150-400) Neutrophils (%) (Auto) 59.8% (40-74) Lymphocytes (%) (Auto) 24.0% (14-46) Monocytes (%) (Auto) 13.4% (4-12) Eosinophils (%) (Auto) 2.1% (0-5) Basophils (%) (Auto) 0.7% (0-3) Reticulocyte Count,Calculated 1.0% (0.6-2.6) Prothrombin Time 41.5sec (8.1-12.5) Prothromb Time International Ratio 3.77ratio Sodium Level 143mEq/L (134-144) Potassium Level 3.8mEq/L (3.5-5.2) Chloride Level 106mEq/L (97-108) Carbon Dioxide Level 27mmol/L (18-29) Blood Urea Nitrogen 15mg/dL (8-27) Creatinine 0.80mg/dL (0.57-1.00) Estimat Glomerular Filtration Rate 97mL/min (>59) Glucose Level 91mg/dL (60-99) Calcium Level 8.3mg/dL (8.5-10.1) Iron Level 27ug/dL (35-150) Total Iron Binding Capacity 295ug/dL (250-450) Percent Iron Saturation 9%sat (15-50) Unsaturated Iron Binding 268.3ug/dL Ferritin 18ng/mL (13-150) Discharge Medications Discharge Medications Digoxin (Digoxin) 125 Mcg Tablet 125 MCG PO HS (Reported) Warfarin Sodium (Warfarin Sodium) 1 Mg Tablet 1.5 MG PO Ferraro,Mo,Tu,Th,Fr,Sa ( Reported) Warfarin Sodium (Warfarin Sodium) 1 Mg Tablet 2 MG PO every sunday (Reported ) Additional med instructions Resume your Warfarin (Coumadin) on 10/27/16 and recheck INR with your primary care provider or [facility]-time/Coumadin Clinic in 2-4 days Followup Plan Disposition: Home Follow-up plan 1. Followup with primary care provider in 4-7 days Discharge Diet: Heart Healthy Discharge Activity: No restrictions Patient Instructions Seek immediate medical attention if any new or worsening signs or symptoms occur. Follow-up Provider: Claudette Wilkins PA-C Time spent 35 min copies to: Claudette Wilkins PA-C, [place] Oct 26, 2016 17:43
--- NOTE | 2016-10-26 18:31 | NUR ---
Diet/discharge Pt. was ordered general diet/soft. Pt. ate about 75% of her meal, tolerated it well with no n/v. Orders were to discharge pt. once able to tolerate solid food. Dash, Son was called and informed about discharge. Pt. was dressed, IV saline lock discontinued. Instructions given to Dash and spouse. Pt. to f/u with PCP and coumadin clinic 2-4 days post d/c. Verbalized understanding. Pt. taken off the unit via w/c at 1545.
== END 2016-10-26 15:30 | disposition home or self-care (01) | DRG 388 ==
LOC: SED 14:52 → OSC 20:28
PROVIDERS: ADMIT Hospitalist; ATTEND Internal Medicine
DX: K56.60 Unspecified intestinal obstruction (principal); E43 Unspecified severe protein-calorie malnutrition; Z68.1 Body mass index [BMI] 19.9 or less, adult; I48.2 Chronic atrial fibrillation; D50.9 Iron deficiency anemia, unspecified; D69.6 Thrombocytopenia, unspecified; Z79.01 Long term (current) use of anticoagulants; Z90.49 Acquired absence of other specified parts of digestive tract